=== PATIENT | female | born 1945 | race Two or more races ===

== ENCOUNTER → 2020-06-21 13:49 | Outpatient (CLI) | payer MEDICARE, BC, SELFPAY ==
--- NOTE | ~2020-06-21 | MM_ITS ---
EXAMINATION: MM screening [facility] HISTORY: Screening mammogram TECHNIQUE: Craniocaudal and mediolateral oblique 3-D tomosynthesis images were obtained and synthetic 2-D images were generated. CAD analysis was submitted and interpreted. COMPARISON: 08/11/2018, 07/11/2016, 06/09/2013 BREAST PARENCHYMAL COMPOSITION: The breasts are heterogeneously dense, which may obscure small masses . FINDINGS: There is no evidence of suspicious mass, calcification, or architectural distortion to sugg est malignancy in either breast. There has been no suspicious interval change. IMPRESSION: 1. No mammographic evidence of malignancy. 2. Recommend routine screening mammography in one year. BI-RADS Category 1: Negative Reviewed, dictated and finalized at location A.
== END ==
PROVIDERS: PCP Internal Medicine; Visit Provider Internal Medicine
DX: Z12.31 Encounter for screening mammogram for malignant neoplasm of breast (principal)
CPT/HCPCS: 77063; 77067

== ENCOUNTER → 2021-10-18 14:24 | Outpatient (CLI) | payer MEDICARE, BC, SELFPAY ==
--- NOTE | ~2021-10-18 | MM_ITS ---
EXAMINATION: MM screening [facility] HISTORY: Screening mammogram TECHNIQUE: Craniocaudal and mediolateral oblique 3-D tomosynthesis images were obtained and synthetic 2-D images were generated. CAD analysis was submitted and interpreted. COMPARISON: 06/21/2020, 08/11/2018, 07/11/2016 bilateral screening mammogram examinations BREAST PARENCHYMAL COMPOSITION: The breasts are heterogeneously dense, which may obscure small masses . FINDINGS: There is no evidence of suspicious mass, calcification, or architectural distortion to sugg est malignancy in either breast. There has been no suspicious interval change. IMPRESSION: 1. No mammographic evidence of malignancy. 2. Recommend routine screening mammography in one year. BI-RADS Category 1: Negative Reviewed, dictated and finalized at location A.
--- NOTE | ~2021-10-18 | DEXA_ITS ---
Bone Density Report Name: NANCY LAGUNAS Age: 76 Sex: Female Ethnicity: Date of : 1945 Indication: postmenopausal; screening for osteoporosis; Referring Provider: REYNA, DOMINIC Study: Bone densitometry was performed. Exam Date: October 18, 2021 Accession number: [id number] Bone Density: Region BMD T-score Z-score Classification AP Spine (L1-L4) 1.008 -0.4 2.1 Normal Femoral Neck (Left) 0.700 -1.3 0.8 Osteopenia Total Hip (Left) 0.903 -0.3 1.5 Normal Femoral Neck (Right) 0.690 -1.4 0.7 Osteopenia Total Hip (Right) 0.858 -0.7 1.2 Normal Total Hip Mean 0.881 -0.5 1.4 Normal World Health Organization criteria for BMD impression classify patients as: Normal (T-score at or above -1.0), Osteopenia (T-score between -1.0 and -2.5), or Osteoporosis (T-score at or below -2.5). 10-year Fracture Risk(1): Major Osteoporotic Fracture 6.5% Hip Fracture 1.3% Reported Risk Factors: [place] (), Neck BMD=0.690, BMI=23.6 (1) FRAX(R) Version 3.08. Fracture probability calculated for an untreated patient. Fracture probability may be lower if the patient has received treatment. Previous Exams: Region Exam Age BMD T-score BMD Change BMD Change Date g/cm2 vs Baseline vs Previous AP Spine(L1-L4) 10/18/2021 76 1.008 -0.4 0.036* 0.012 07/11/2016 71 0.995 -0.5 0.024* -0.006 09/18/2011 66 1.002 -0.4 0.031* 0.031* 04/05/2006 60 0.971 -0.7 Total Hip(Left) 10/18/2021 76 0.903 -0.3 -0.011 -0.001 07/11/2016 71 0.904 -0.3 -0.010 0.022 09/18/2011 66 0.882 -0.5 -0.032* -0.032* 04/05/2006 60 0.914 -0.2 Total Hip(Right) 10/18/2021 76 0.858 -0.7 -0.028* 0.012 07/11/2016 71 0.846 -0.8 -0.040* -0.007 09/18/2011 66 0.853 -0.7 -0.033* -0.033* 04/05/2006 60 0.886 -0.5 *Denotes significance at 95% confidence level, LSC for AP Spine = 0.022 g/cm2, LSC for Total Hip = 0.027 g/cm2 Clinical Information Provided by Patient: Has used the following medications: Vitamin D, LEVOTHYROXINE Patient maximum height was 62.0 Menopause Age: 48 Drinks caffeinated beverages Onset of menses at age 12 Number of children 2 Impression: The patient has low bone mass, based on the Right Femoral Neck T-score. The patient has an estimated ten-year risk of
== END ==
PROVIDERS: PCP Internal Medicine; Visit Provider Internal Medicine
DX: Z12.31 Encounter for screening mammogram for malignant neoplasm of breast (principal); Z78.0 Asymptomatic menopausal state; M85.852 Other specified disorders of bone density and structure, left thigh; M85.851 Other specified disorders of bone density and structure, right thigh
CPT/HCPCS: 77063; 77067; 77080

== ENCOUNTER 2024-11-09 15:09 | Outpatient (CLI) | payer BC, SELFPAY ==
--- NOTE | ~2024-11-09 | DEXA_ITS ---
Bone Density Report Name: NANCY LAGUNAS Age: 79 Sex: Female Ethnicity: Date of : 1945 Indication: postmenopausal; screening for osteoporosis; Referring Provider: REYNA, DOMINIC Study: Bone densitometry was performed. Exam Date: November 09, 2024 Accession number: [id number] Bone Density: Region BMD T-score Z-score Classification AP Spine(L1-L4) 1.012 -0.3 2.3 Normal Femoral Neck (Left) 0.680 -1.5 0.8 Osteopenia Total Hip (Left) 0.849 -0.8 1.3 Normal Femoral Neck (Right) 0.701 -1.3 0.9 Osteopenia Total Hip (Right) 0.839 -0.8 1.2 Normal Total Hip Mean 0.844 -0.8 1.3 Normal World Health Organization criteria for BMD impression classify patients as: Normal (T-score at or above -1.0), Osteopenia (T-score between -1.0 and -2.5), or Osteoporosis (T-score at or below -2.5). 10-year Fracture Risk(1): Major Osteoporotic Fracture 7.9% Hip Fracture 1.9% Reported Risk Factors: [place] (), Neck BMD=0.680, BMI=24.2 (1) FRAX(R) Version 3.08. Fracture probability calculated for an untreated patient. Fracture probability may be lower if the patient has received treatment. Previous Exams: -- Region Exam Age BMD T-score BMD Change BMD Change Date g/cm2 vs Baseline vs Previous -- AP Spine (L1-L4) 11/09/2024 79 1.012 -0.3 4.2%* 0.4% 10/18/2021 76 1.008 -0.4 3.8%* 1.2% 07/11/2016 71 0.995 -0.5 2.5%* -0.6% 09/18/2011 66 1.002 -0.4 3.2%* 3.2%* 04/05/2006 60 0.971 -0.7 Total Hip(Left) 11/09/2024 79 0.849 -0.8 -7.0%* -5.9%* 10/18/2021 76 0.903 -0.3 -1.2% -0.1% 07/11/2016 71 0.904 -0.3 -1.1% 2.5% 09/18/2011 66 0.882 -0.5 -3.5%* -3.5%* 04/05/2006 60 0.914 -0.2 Total Hip(Right) 11/09/2024 79 0.839 -0.8 -5.3%* -2.2% 10/18/2021 76 0.858 -0.7 -3.2%* 1.4% 07/11/2016 71 0.846 -0.8 -4.5%* -0.8% 09/18/2011 66 0.853 -0.7 -3.7%* -3.7%* 04/05/2006 60 0.886 -0.5 -- *Denotes significance at 95% confidence level, LSC for AP Spine = 0.022 g/cm2, LSC for Total Hip = 0.027 g/cm2 Clinical Information Provided by Patient: Has used the following medications: Vitamin D Patient maximum height was 62 Menopause Age: 48 Drinks caffeinated beverages Onset of menses at age 13 Number of children 2 Impression: The patient has low bone mass, based on the Left Femoral Neck T-score. The patient has an estimated ten-year risk of hip fracture of 1.9% and an estimated ten-year risk of major fracture of 7.9%, based on the WHO FRAX algorithm. The BMD for the Total Hip(Left) decreased, changing by -5.9% since the last DXA exam. Discussion: BONE DENSITY IS LOW AT ONE OR MORE SKELETAL SITES. This patient's lowest T-score is low at one or more skeletal sites. It meets the World Health Organization's (WHO) criteria for ?low bone mass? (T-score between -1.0 and -2.5). The patient's 10-year risk of fracture as calculated by FRAX is less than the threshold where pharmacological therapy is recommended by the National Osteoporosis Foundation (NOF). However, all treatment decisions require clinical judgment and consideration of individual patient factors, including patient preferences, comorbidities, previous drug use, risk factors not captured in the FRAX model (e.g., frailty, falls, vitamin D deficiency, increased bone turnover, interval significant decline in bone density) and possible under or overestimation of fracture risk by FRAX. The patient should follow a healthful lifestyle (good nutrition with adequate calcium and vitamin D, and appropriate weight-bearing exercise). Follow-Up: Consider repeating this study in 2 years to reassess this patient's status, or sooner if there is some new clinical indication. Reported by: BHARTI on 11/09/2024 3:33:00 PM. Reviewed, dictated and finalized at location A.
== END 2024-11-09 15:10 | disposition home or self-care (01) ==
LOC: MICIMG 15:13
PROVIDERS: PCP Obstetrics & Gynecology; Visit Provider Internal Medicine
DX: M85.852 Other specified disorders of bone density and structure, left thigh (principal); M85.851 Other specified disorders of bone density and structure, right thigh; Z78.0 Asymptomatic menopausal state; Z12.31 Encounter for screening mammogram for malignant neoplasm of breast
CPT/HCPCS: 77080